=== PATIENT | female | born 1935 | race Caucasian/White ===

== ENCOUNTER 2017-02-12 12:30 | Inpatient (IN) | payer MEDICARE, BC ==
[~2017-02-12] VITALS: Ht 162.6 cm; Wt 76.2 kg
--- NOTE | ~2017-02-12 | OR ---
ADMIT: 02/12/2017 RM/LOC: 425 [facility] MR#: [id number] [address] [address] EJNNIFER LEAL [address] [place] [address] Operative/Delivery Room Report SEX: F AGE: 82 : 1935 SURGERY DATE: 02/13/2017 SURGEON: Moisés Rogers MD PREOPERATIVE DIAGNOSES: 1. Black hematemesis. 2. Anemia. POSTOPERATIVE DIAGNOSES: 1. Severe mid to distal esophagitis. 2. Approximately 2 cm hiatal hernia. PROCEDURE PERFORMED: EGD with biopsies. ANESTHESIA: Sedation. ESTIMATED BLOOD LOSS: None. DESCRIPTION OF PROCEDURE: After appropriate informed consent was obtained, the patient was brought to the endoscopy suite. IV sedation was provided. A well-lubricated endoscope was introduced and passed down the esophagus. The proximal esophagus appeared normal but from the mid to distal esophagus, she did have pretty severe esophagitis with some whitish plaque-like material covering the esophagus. She did have a hiatal hernia about 2 cm in length with evidence of esophagitis all the way down to the GE junction. The gastric mucosa really appeared pretty normal from the fundus all the way down to the antrum. The pylorus was intubated. Duodenal bulb, second and third portions of the duodenum appeared normal. The scope was then pulled back to the stomach, retroflexed, again revealing the sliding type hiatal hernia from below. No proximal gastritis or mass. Several biopsies were taken in the duodenum, biopsies were also taken in the antrum. Lastly, multiple biopsies were taken of the esophagus. The stomach was then deflated and the scope was withdrawn without apparent complications. The patient tolerated the procedure well and was taken to the recovery room in stable condition. Moisés Rogers MD/ henny JOB #: [id number] CC: Rosie Martinez, Attending Physician Rosie Martinez, Family Physician Rosie Martinez MD
[~2017-02-12 12:30] MED LIST: ASA CHILDREN'S81 MG PO; ASCORBIC ACID250 MG PO; FEOSOL-DPS325 MG PO; FLONASE 0.05% D16 GM NS; GLUCOTROL DPS10 MG PO; GOLD BOND MED56.6 GM TP; GOLD BOND ULT D96 GM TP; MACROBID100 MG PO; NEXIUM40 MG PO; OCUVITE SOFTGE1 EACH PO; SOOTHE LUBRICA1 EACH OU; THERAPEUTIC MUL1 TAB PO; TYLENOL EXTRA500 M1 PO; VITAMIN D1000 UNI1 PO; ZESTRIL DPS10 MG PO; ZOCOR DPS40 MG PO; ZOLOFT DPS100 MG PO
--- NOTE | 2017-02-13 10:45 | CO ---
ADMIT: 02/12/2017 RM/LOC: 425 [facility] MR#: [id number] [address] [address] JENNIFER LEAL [address] [place] [address] Consultation SEX: F AGE: 82 : 1935 DATE OF CONSULTATION: 02/12/2017 ATTENDING PHYSICIAN: Rosie Martinez CONSULTING PHYSICIAN: Moisés Rogers MD ADDENDUM: This is an addendum to Matt Abel's consult. This is a patient of Rosie Martinez, who has had episodes of black emesis, anemia, probable upper GI bleed. I was asked to see her for possible upper endoscopy. PHYSICAL EXAMINATION: On exam, her abdomen is soft, it is nontender at this time. ASSESSMENT: Black hematemesis and anemia. PLAN: Recommended proceeding with EGD, which we will schedule to be done for her tomorrow. Gone through risks and benefits of this procedure. She understands and agrees to proceed. Moisés Rogers MD/ henny JOB #: [id number] CC: Rosie Martinez, Attending Physician Rosie Martinez, Family Physician
[2017-02-15] MEDS ORDERED: PRILOSEC DPS20 MG PO (19:52)
[2017-02-15] MEDS ORDERED: KLOR-CON M2020 ME1 PO (19:52)
[2017-02-15] MEDS ORDERED: HYDROCHLOROTHIA25 MG PO (19:53)
[2017-02-15] MEDS ORDERED: CARAFATE DPS1 GM PO (19:53)
--- NOTE | 2017-02-22 12:12 | DS ---
ADMIT: 02/12/2017 RM/LOC: 425 [facility] MR#: [id number] [address] [address] PERLA LEAL [address] [place] [address] Discharge Summary SEX: F AGE: 82 : 1935 ADMISSION DATE: 02/12/2017 DISCHARGE DATE: 02/14/2017 DISCHARGE DIAGNOSES: 1. Upper gastrointestinal bleed. 2. Severe esophagitis. 3. Mild renal insufficiency. 4. Diabetes. 5. Anxiety. 6. Hypertension. 7. History of peptic ulcer disease. PROCEDURE: Upper endoscopy, which showed mid to distal esophagitis approximately 2 cm hiatal hernia. HISTORY OF PRESENT ILLNESS: Well documented in her H and P. LABORATORY AND RADIOGRAPHIC ASSESSMENT: As followed. On admission, white count was 9.0; hemoglobin 8.6, did drop to 7.7. At time of discharge, hemoglobin was 8.8. Her sodium on admission was 141, potassium 2.9. At time of discharge, potassium was 3.4, blood sugar 125. Other electrolytes showed no evidence of abnormalities. Blood sugars ranged between 149-266. 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 Perforation series; degenerative changes, cardiomegaly without decompensation, preop changes. Ultrasound of liver; mild hepatomegaly in posterior and inferior margin of the liver 2.8 cm. Echo, just a peripheral lesion, which was followed as above and CT scan showed no evidence of abnormalities. HOSPITAL COURSE: Perla is a well-known patient of mine, who admitted with evidence of over the last several days of vomiting with black emesis. She was admitted to [facility] with upper GI bleed, abdominal pain, fatigue, lightheadedness. She underwent assessment. She was initially placed on telemetry. ultrasound of abdomen, IV fluids with normal saline. ADMIT: 02/12/2017 RM/LOC: 425 [facility] MR#: [id number] [address] [address] PERLA LEAL [address] [place] [address] Discharge Summary SEX: F AGE: 82 : 1935 As she had some vague chest pain, cardiac enzymes were performed. Surgical consult. Follow up of diabetes with Accu-Cheks and sliding scale insulin as appropriate. She has continued to do well. Underwent upper endoscopy, which showed evidence of severe esophagitis with hiatal hernia. She was transfused prior to this procedure as she had a hemoglobin of 7.7 and with her age and frailty and lightheadedness, felt that she needed fluid volume resuscitation as well as blood products. As per her request, she is a DNR/DNI. Her hypokalemia was corrected. After upper endoscopy, diet was advanced and she was subsequently discharged home. Carafate 1 g before meals and at bedtime, Prilosec 20 mg b.i.d. and make sure she has no aspirin, nonsteroidal, and anti-inflammatory agents. She was discharged home. I will follow her up in clinic within a week. Rosie Martinez MD/ henny JOB #: [id number] CC: Rosie Martinez MD, Attending Physician Rosie Martinez MD, Family Physician
--- NOTE | 2017-03-04 12:38 | CO ---
ADMIT: 02/12/2017 RM/LOC: 425 [facility] MR#: [id number] [address] [address] PERLA LEAL [address] [place] [address] Consultation SEX: F AGE: 82 : 1935 DATE OF CONSULTATION: 02/12/2017 ATTENDING PHYSICIAN: Rosie Martinez CONSULTING PHYSICIAN: Moisés Rogers MD REASON FOR CONSULTATION: Nausea with emesis. HISTORY OF PRESENT ILLNESS: Perla is a very pleasant 82-year-old female, who endorses a 5-day history of nausea with dark emesis. She has been taking 81 mg aspirin, but stopped all her medications when this happened. She is unsure what caused all this as there were no changes to her normal activity but just happened to get sick after supper time. With the duration of her symptoms, she decided to seek medical attention with her primary care physician, where at that time, she was found to be anemic and has now been admitted to the hospital for management of her symptoms. She describes her emesis as being black. She has also been constipated with last bowel movement that was approximately 5 days ago. She denies any bright red hematemesis or abdominal pain. At the onset of her symptoms, she did have chest pain that radiated up into her neck and to her ears bilaterally. This has now resolved. PAST MEDICAL HISTORY: Significant for diverticulosis, renal insufficiency, anxiety, type 2 diabetes. PAST SURGICAL HISTORY: 1. Prior EGD was performed approximately 1 year ago. At that time, it was noted that she had hiatal hernia and Schneider's esophagitis. 2. Right shoulder surgery. 3. Ankle surgery. ALLERGIES: NO KNOWN DRUG ALLERGIES. MEDICATIONS: Well documented in chart. FAMILY HISTORY: Noncontributory. SOCIAL HISTORY: The patient denies tobacco, alcohol, or illicit drug use. REVIEW OF SYSTEMS: EYES: Has noticed decreased acuity in the last few days but denies any foreign body sensation, double vision, or blurry vision. The rest of a comprehensive 10-point review of systems was performed and all other systems are negative. PHYSICAL EXAMINATION: GENERAL: The patient is in no acute distress. She is alert and oriented. HEENT: Head is normocephalic and atraumatic. EOMS are intact. Conjunctivae free of icterus, erythema, or pallor. Pinnae, free of deformities. Nose, midline. No tracheal deviation. ADMIT: 02/12/2017 RM/LOC: 425 [facility] MR#: [id number] [address] [address] LEALPERLA JIN Kari [address] [place] [address] Consultation SEX: F AGE: 82 : 1935 NECK: Supple. SKIN: Negative for jaundice, clubbing, edema, pallor, or cyanosis. LUNGS: Clear to auscultation bilaterally. Normal respiratory effort. HEART: Distal pulses intact. Regular rate and rhythm. ABDOMEN: Soft, nondistended, and nontender. NEURO: Grossly intact. LABORATORY DATA: The following was obtained at an outside clinic. Hemoglobin is 9. ASSESSMENT: 1. Anemia. 2. Upper GI bleed. PLAN: The plan is to have the patient undergo EGD performed by Dr. Rogers tomorrow. I discussed the risks, alternatives, benefits, and complications of EGD with the patient, to which she is in agreement of this plan, had all of her questions answered, and would like to proceed. I will get her on the schedule and prep for this case tomorrow. Thank you for the consultation on this patient. DUY Fagan / Moisés Rogers MD / henny JOB #: [id number] CC: Rosie Martinez, Attending Physician Rosie Martinez, Family Physician
[2017-04-12] MEDS ORDERED: COLACE-DPS100 MG PO (10:19)
[2017-04-12] MEDS ORDERED: MAALOX DPS30 ML PO (10:19)
[2017-04-12] MEDS ORDERED: TYLENOL EXTRA500 M1 PO (10:19)
== END 2017-02-14 13:50 | disposition home or self-care (01) | DRG 378 ==
LOC: 4PCU 12:30
PROVIDERS: ADMIT Internal Medicine
PROC: 0DB58ZX Excision of Esophagus, Via Natural or Artificial Opening Endoscopic, Diagnostic (ICD-10-PCS; principal; 2017-02-13)
PROC: 0DB98ZX Excision of Duodenum, Via Natural or Artificial Opening Endoscopic, Diagnostic (ICD-10-PCS; principal; 2017-02-13)
PROC: 0DB68ZX Excision of Stomach, Via Natural or Artificial Opening Endoscopic, Diagnostic (ICD-10-PCS; principal; 2017-02-13)
PROC: 30233N1 Transfusion of Nonautologous Red Blood Cells into Peripheral Vein, Percutaneous Approach (ICD-10-PCS; 2017-02-13)
DX: K92.0 Hematemesis (principal); D62 Acute posthemorrhagic anemia; E11.9 Type 2 diabetes mellitus without complications; K20.9 Esophagitis, unspecified; K22.70 Barrett's esophagus without dysplasia; F41.9 Anxiety disorder, unspecified; R11.2 Nausea with vomiting, unspecified; K59.00 Constipation, unspecified; E87.6 Hypokalemia; K57.90 Diverticulosis of intestine, part unspecified, without perforation or abscess without bleeding; K44.9 Diaphragmatic hernia without obstruction or gangrene; N28.9 Disorder of kidney and ureter, unspecified; Z66 Do not resuscitate; Z87.11 Personal history of peptic ulcer disease

== ENCOUNTER 2017-04-09 09:21 | Observation (INO) | payer MEDICARE, BC ==
[~2017-04-09] VITALS: Ht 162.6 cm; Wt 80.1 kg
[~2017-04-09 09:21] MED LIST changes: +CARAFATE DPS1 GM PO; +HYDROCHLOROTHIA25 MG PO; +KLOR-CON M2020 ME1 PO; +PRILOSEC DPS20 MG PO
--- NOTE | 2017-04-09 14:32 | NUR ---
Referral from ED stating pt is interested in a [facility]. Spoke with pt in ER. Gave pt information on [facility] and made referral to [facility] coordinator. Also gave pt information on HHC, [employer], and [facility]. Deny any other needs or concerns at this time.
--- NOTE | 2017-04-11 08:16 | HP ---
ADMIT: 04/09/2017 RM/LOC: 531 [facility] MR#: [id number] [facility]#: [id number] [address] [address] JENNIFER LEAL [address] [place] [address] History and Physical SEX: F AGE: 82 : 1935 DATE OF SERVICE: REASON FOR ADMISSION: She was found on the floor, apparently slept on the floor all night. Unsure of the circumstances of how she got there of her kitchen floor. She has been complaining of some low back pain. She has a past medical history of peripheral vascular disease, Schneider's esophagus, mild renal insufficiency, anxiety, worry, hypertension, hyperlipidemia, diabetes, and fractured humerus. SOCIAL HISTORY: She lives independently, but her son is very much involved in her care. FAMILY HISTORY: Noncontributory. She was brought to the emergency room by squad as she was unable to get up secondary to complaints of low back pain and back discomfort. Seen and evaluated here in the ER. LABORATORY DATA: Sodium was 141, potassium 3.7, BUN and creatinine 24 and 1.2. CK of 218. White count 9.5, hemoglobin 9.8, and platelet count 179,000. T- spine CT showed no compression deformity. CT of brain showed mild chronic small vessel changes. She at this time is admitted for continued evaluation and care. On admission, her vital signs are stable. PHYSICAL EXAMINATION: GENERAL: She is alert. HEART: Regular rhythm. LUNGS: Clear. ABDOMEN: Soft. EXTREMITIES: No edema. ASSESSMENT AND PLAN: Admission of an 82-year-old white female, found on the floor, questionable circumstances, history of falls. History of fractured humerus, complaints of low back pain. Apparently, this back pain started before she was found on the floor. Slight mental status changes. She is not as sharp as she usually is, repeated herself, and some of her answers to questions were slightly inappropriate for her. We at this time will admit to [facility], rule out possible infectious etiology. In addition, she had a CT of her thoracic vertebrae, she needs further assessment with CT of lumbar spine. We will continue to follow closely. Placed her on telemetry. Continue to monitor blood sugars, etc. Rosie Martinez MD/ henny JOB #: [id number] CC: Rosie Martinez, Attending Physician Rosie Martinez, Family Physician
[2017-04-12] MEDS ORDERED: MAALOX DPS30 ML PO (10:19)
[2017-04-12] MEDS ORDERED: COLACE-DPS100 MG PO (10:19)
[2017-04-12] MEDS ORDERED: TYLENOL EXTRA500 M1 PO (10:19)
--- NOTE | 2017-04-18 14:22 | ER ---
ADMIT: 04/09/2017 RM/LOC: 531 [facility] MR#: [id number] [address] [address] JENNIFER LEAL [address] [place] [address] Emergency Room Report SEX: F AGE: 82 : 1935 DATE: 04/09/2017 ADDENDUM: CHIEF COMPLAINT: Fall. HISTORY OF PRESENT ILLNESS: This 82-year-old who fell last night and laid on the floor all night. Her son found her early this morning. The only complaint that she mainly has is mid back pain. Overall findings pretty normal except for a CK slightly elevated at 218. CLINICAL IMPRESSION: 1. Fall. 2. Thoracic strain. 3. Concussion. DISPOSITION: I did speak to Dr. Martinez. After trying to walk the patient and trying to see if she could take care of herself, she is unable to. Dr. Martinez is going to admit. DUY Rock / Matt Rodriguez MD / henny JOB #: [id number] CC: Rosie Martinez MD, Attending Physician Rosie Martinez MD, Family Physician
== END 2017-04-11 10:43 | disposition home health service (06) ==
LOC: ER 09:21 → 5MS 14:05
PROVIDERS: ADMIT Internal Medicine
DX: R55 Syncope and collapse (principal); I10 Essential (primary) hypertension; E78.5 Hyperlipidemia, unspecified; E11.9 Type 2 diabetes mellitus without complications; N28.9 Disorder of kidney and ureter, unspecified; Z79.899 Other long term (current) drug therapy